=== PATIENT | male | born 2000 | race Caucasian/White ===

== ENCOUNTER 2024-02-01 04:29 | Emergency (ER) | payer OTHER, SELFPAY ==
--- NOTE | ~2024-02-01 | CT_ITS ---
EXAMINATION: CT abdomen pelvis w con INDICATION: Right lower quadrant pain TECHNIQUE: Computed tomographic images of the abdomen and pelvis were obtained after the administrati on of 100 cc of Omnipaque 350 intravenous contrast. The dose-length product (DLP) was 432.93 mGy-cm. Automated exposure control and iterative reconstruction technique were employed. COMPARISON: None available FINDINGS: The lung bases are clear. The heart size is normal. The liver, spleen, pancreas, gallbladde r, and adrenal glands are normal. The kidneys are unremarkable. No pathologically enlarged abdominal or pelvic lymph nodes are identified. No free intraperitoneal gas or evidence of bowel obstruction. T he appendix is normal. There is mild lumbar spondylosis at L5-S1. IMPRESSION: 1. No CT correlate for the patient's symptoms. Reviewed, dictated and finalized at location A.
[2024-02-01 04:32] VITALS: BP 140/80; PULSE 69; RESP 20; TEMP 36.8; O2SAT 99
[2024-02-01 04:53] VITALS: BP 134/74; PULSE 75; RESP 12; O2SAT 100
--- NOTE | 2024-02-01 04:54 | ED.ABDPAIN ---
HPI - Abdominal Pain General Chief Complaint: Abdominal Pain Stated Complaint: abd pain Time Seen by Provider: 02/01/24 04:36 History of Present Illness HPI narrative: Patient is a 23-year-old male who presents to the emergency department this morning complaining of abdominal pain. Patient states pain started around 1:00 a.m. and initially started in the periumbilical region but has now moved to his right lower. Patient admits that the pain does wrap around to his right flank region. He denies any urinary symptoms including dysuria or hematuria. Patient also denies any history of kidney stones and denies any previous abdominal surgeries. Patient admits that he has been having diarrhea for the past 2 days. He admits to feeling nauseous but denies any vomiting episodes. Denies any melena or hematochezia any fevers or chills. There are no other modifying, alleviating, or precipitating factors at this time. Related Data Allergies Allergy/AdvReac Type Severity Reaction Status Date / Time cefdinir Allergy Unknown hives Verified 05/15/16 13:34 Review of Systems Review of Systems: All systems are reviewed and are negative unless stated otherwise in the HPI. [facility] Family History Family History Mother Hypertension Comments Denies any significant medical or surgical history, denies any alcohol abuse or illicit drug use Exam Narrative: General: Alert, awake, afebrile, in no acute distress. HEENT: PERRL, no rhinorrhea, no post nasal drip, oropharynx clear. Neck: Trachea midline, no JVD, no lymphadenopathy. Cardiovascular: Regular rate and rhythm, no murmurs, rubs or gallops, no peripheral edema. Respiratory: Clear to auscultation bilaterally, no tachypnea, no wheezing, no rhonchi, no rubs, no respiratory distress. Abdomen: Soft, nonlocalized tenderness to palpation over the lower quadrants, nondistended, no rebound, no guarding, no peritoneal signs. Musculoskeletal: No joint swelling or deformity, normal muscle tone. Skin: No rashes or petechia, no signs of infection. Psychiatric: Alert and oriented, normal behavior and judgment for situation. Neurological: Alert and oriented to person, place, and time. Follows all commands. No focal deficits, speech is clear and fluent. Course Vital Signs Vital signs: Vital Signs Temperature 98.2 F 02/01/24 04:32 Pulse Rate 69 02/01/24 04:32 Respiratory Rate 20 02/01/24 04:32 Blood Pressure 140/80 02/01/24 04:32 Pulse Oximetry 99 02/01/24 04:32 Oxygen Delivery Room Air 02/01/24 04:32 Temperature 98.2 F 02/01/24 04:32 Pulse Rate 75 02/01/24 04:53 Respiratory Rate 12 02/01/24 04:53 Blood Pressure 134/74 02/01/24 04:53 Pulse Oximetry 100 02/01/24 04:53 Oxygen Delivery Room Air 02/01/24 04:32 MDM - Abdominal Pain MDM Narrative Medical decision making narrative: The patient was evaluated by myself in the emergency department. History is obtained from patient who is an independent historian and physical exam was performed. External medical records were reviewed at this time. IV was established and pertinent tests were ordered. Patient was administered 2 mg of IV morphine and 4 mg of IV Zofran. Laboratory results obtained revealing a leukocytosis of 19, otherwise unremarkable. Imaging studies obtained included CT abdomen and pelvis with IV contrast which was independently interpreted by me revealing no acute process, which is pending final radiology interpretation. Differential diagnosis considerations include kidney stones, pancreatitis, appendicitis, cholecystitis and diverticulitis. Comorbidities impacting this visit include none. I have evaluated and discussed social determinants of health with the patient that could potentially impact subsequent diagnosis and treatment plans. On repeat assessment of the patient, reevaluation revealed that the patient is doing well and
[2024-02-01 05:01] LABS: Basophils Absolute Auto 0.1 K/mm3 (0.0-0.1); Basophils Percent Auto 0.4 % (0.2-1.2); Eosinophils Absolute Auto 0.1 K/mm3 (0-0.3); Eosinophils Percent Auto 0.6 % (0-4.4); Hematocrit 49.5 % (42.0-52.0); Immature Granulocyte Absolute 0.08 K/mm3 (0.00-0.031); Immature Granulocyte Percent A 0.4 % (0-0.5); Lymphocytes Absolute Auto 1.89 K/mm3 (0.9-3.2); Lymphocytes Percent Auto 9.8 % (18.3-44.2); Mean Corpuscular HGB Conc 34.3 g/dl (32-36); Mean Corpuscular Volume 90.2 fl (80-100); Mean Platelet Volume 11.7 fl (7.4-10.4); Monocytes Absolute Auto 1.4 K/mm3 (0.1-0.6); Monocytes Percent Auto 7.1 % (2.6-8.5); Neutrophils Absolute Auto 15.7 K/mm3 (1.3-6.7); Neutrophils Percent Auto 81.7 % (45.5-73.1); Platelet Count Result 218 k/mm3 (150-375); Red Blood Count 5.49 M/mm3 (4.6-6.20); Red Cell Distribution Width 12.3 % (11.5-14.5); White Blood Count 19.2 K/mm3 (4.5-10.0)
[2024-02-01 05:03] LABS: Appearance Urine Clear (Clear); Bilirubin Urine Negative (Negative); Blood Urine Negative (Negative); Color Urine Yellow (Yellow); Glucose Urine UA Negative (Negative); Ketones Urine Trace mg/dL (Negative); Leukocyte Esterase Ur Negative LEU/UL (Negative); Nitrate Urine Negative (Negative); Protein Urine Negative (Negative); Urobilinogen Urine 0.2 mg/dL (<2.0); pH Urine 5.5 (5.0-9.0)
[2024-02-01 05:13] LABS: Alanine Aminotransferase 32 U/L (6-50); Albumin Level 4.8 g/dL (3.5-5.1); Alkaline Phosphatase 65 U/L (38-126); Anion Gap 7 mmol/L (4-12); Aspartate Amino Transferase 29 U/L (17-59); Blood Urea Nitrogen 24 mg/dL (9-20); Carbon Dioxide 30 mmol/L (22-30); Chloride 102 mmol/L (98-107); Estimated CRCL calculation 129 ml/min; Estimated Glomerular Filt Rate > 60; Glucose 103 mg/dL (65-110); Potassium 4.1 mmol/L (3.4-5.0); Sodium 139 mmol/L (137-145)
[2024-02-01] MEDS: ONDANSETRON INJ 4 MG/2 ML VIAL IV PUSH ×2 (05:24→05:34)
[2024-02-01] MEDS: MORPHINE SULFATE (*CRX) 2 MG/ML INJ IV PUSH (05:24)
[2024-02-01 05:49] LABS: Specific Grav Ur 1.031 (1.001-1.035)
[2024-02-01 05:50] LABS: Add Urine Microscopic? NO
[2024-02-01 05:52] LABS: Lipase 70 U/L (23-300)
[2024-02-01] MEDS: SODIUM CHLORIDE 0.9% IV 1,000 ML 999 ML IV CONT (06:13)
[2024-02-01 07:38] VITALS: BP 127/73; PULSE 74; RESP 15; TEMP 36.8; O2SAT 99
== END 2024-02-01 07:40 | disposition home or self-care (01) ==
PROVIDERS: Emergency Provider Emergency Medicine; PCP Family Medicine
DX: R10.31 Right lower quadrant pain (principal); D72.829 Elevated white blood cell count, unspecified
CPT/HCPCS: 36415; 74177; 80053; 81003; 82248; 83690; 85025; 96361; 96374; 96375; 99284; J2270; J2405; J7030; Q9967

== ENCOUNTER 2025-04-29 15:54 | Emergency (ER) | payer OTHER, SELFPAY ==
[2025-04-29 16:05] VITALS: BP 141/79; PULSE 75; RESP 20; TEMP 36.9; O2SAT 99
--- NOTE | 2025-04-29 16:36 | ED_ITS ---
HPI - General Adult General Chief complaint: Upper Respiratory Infection Stated complaint: Sinus Source: patient Mode of arrival: ambulatory Limitations: no limitations History of Present Illness HPI narrative: patient is a 24-year-old male presenting complaint of sinus congestion. Additional symptoms reported include rhinorrhea, sore throat, postnasal drip, watery eyes. Symptoms began 3 days ago. Reports sore throat has improved since onset. Denies any known exposure to COVID, flu, strep, pneumonia. Treatment initiated prior to arrival include DayQuil, NyQuil. No additional complaints. Related Data Home Medications ?Medication ?Instructions ?Recorded ?Confirmed ?Last Taken ?Type pantoprazole 40 mg tablet,delayed 40 mg PO QAM PRN 05/21/24 05/21/24 Unknown History release Allergies Allergy/AdvReac Type Severity Reaction Status Date / Time cefdinir Allergy Unknown hives Verified 04/29/25 16:10 Review of Systems Review of Systems: CONSTITUTIONAL: Denies body aches, fever, chills, or sweats. EYES: reports watery eyes Denies visual changes, redness, or discharge. ENT: reports rhinorrhea, congestion, sore throat, postnasal drip,denies otalgia. CARDIOVASCULAR: Denies chest pain, palpitations, or edema. RESPIRATORY: Denies cough or dyspnea. GASTROINTESTINAL: Denies abdominal pain, nausea, vomiting, or diarrhea. GENITOURINARY: Denies dysuria or hematuria. SKIN: Denies rash, itching, or wounds. MUSCULOSKELETAL: Denies back pain, joint pain, or myalgia. NEUROLOGIC: Denies headache, numbness, tingling, or weakness. PSYCH: Denies depression or anxiety. All systems reviewed & are unremarkable except as noted in HPI and below PMFSH Past Medical History Medical History Coarctation of aorta (~2008) Gastritis Hypertension Family History Family History Mother Hypertension Grandparent Hypertension Diabetes mellitus Social History Social History Smoking status: Never smoker Tobacco type: e-cigarettes/vaping Alcohol intake: current Substance use type: marijuana Do You Feel Safe in your Home?: Yes Lack of Transportation: No Lack of Food: Never True Current Housing: I Have Housing Concerned About Future Housing: No Difficulty Paying Gas/Electric Bills: No Difficulty Paying for Meds: No Currently Unemployed: No Education: Bachelor's Degree Difficulty w/ Childcare or Family Care: No Exam Narrative: GENERAL: Well-appearing, well-nourished, and in no acute distress. HEAD: Normocephalic, atraumatic. EYES: EOMI. No redness or drainage. Conjunctivae normal. ENT: Mucous membranes pink and moist. Nares clear. scant amount of clear rhinorrhea. TMs normal bilaterally. mild erythema noted to posterior pharynx. Tonsils are 2+ bilaterally without exudate.Uvula midline. NECK: Normal AROM. Supple. No lymphadenopathy. CHEST: No respiratory distress. Clear to auscultation. HEART: Regular rate and rhythm. No murmur appreciated. Normal peripheral pulses. ABDOMEN: Soft, nontender, nondistended, normal active bowel sounds. MUSCULOSKELETAL: No bony tenderness. EXTREMITIES: Normal range of motion. No edema. SKIN: Warm, dry, no rash. Capillary refill normal. Normal skin turgor. NEURO: No focal deficits. Alert and oriented x3. Gait steady. PSYCH: Normal affect. No signs of depression or anxiety. Course Course Emergency Course: Please be advised this is a medical document. It is intended for [id number] communication. It is written in medical language and may contain unfamiliar abbreviations or verbiage. Medical documents are intended to carry relevant information, facts as evident, and the clinical opinion of the practitioner at the time of the encounter. This dictation may have been done utilizing a voice recognition system. Attempts have been made to correct errors. However, there may be uncorrected grammatical, spelling, and recognition errors present. Level of Care: Express Care Visit Vital Signs Vital signs: Vital Signs Temperature 98.5 F 04/29/25 16:05 Pulse Rate 75 04/29/25 16:05 Respiratory Rate 04/29/25 16:05 Blood Pressure 141/79 H 04/29/25 16:05 Pulse Oximetry 99 04/29/25 16:05 Oxygen Delivery Room Air 04/29/25 16:05 Temperature 98.5 F 04/29/25 16:05 Pulse Rate 75 04/29/25 16:05 Respiratory Rate 20 04/29/25 16:05 Blood Pressure 141/79 H 04/29/25 16:05 Pulse Oximetry 99 04/29/25 16:05 Oxygen Delivery Room Air 04/29/25 16:05 Medical Decision Making Vital Signs Vital Signs: Vital Signs Temperature 98.5 F 04/29/25 16:05 Pulse Rate 75 04/29/25 16:05 Respiratory Rate 20 04/29/25 16:05 Blood Pressure 141/79 H 04/29/25 16:05 Pulse Oximetry 99 04/29/25 16:05 Oxygen Delivery Room Air 04/29/25 16:05 Temperature 98.5 F 04/29/25 16:05 Pulse Rate 75 04/29/25 16:05 Respiratory Rate 20 04/29/25 16:05 Blood Pressure 141/79 H 04/29/25 16:05 Pulse Oximetry 99 04/29/25 16:05 Oxygen Delivery Room Air 04/29/25 16:05 Lab Data Labs: Lab Results 04/29/25 Range/Units 16:25 POC Influenza A Ag Pending POC Influenza B Ag Pending POC SARS CoV-2 Ag Negative (Negative) POC Grp A Strep Screen Pending Discharge Plan Discharge Clinical Impression: Elevated blood pressure reading in office without diagnosis of hypertension Upper respiratory infection Qualifiers: URI type: acute nasopharyngitis (common cold) Qualified Code(s): J00 - Acute nasopharyngitis [common cold] Patient Disposition: Home Condition: Stable Instructions: Antibiotic Form Additional Instructions: Go straight to ER should your symptoms become worse or should any new symptoms develop Patient Language: Dominican Prescriptions: New prednisone 20 mg tablet 60 mg PO DAILY Qty: 15 0RF No Action pantoprazole 40 mg tablet,delayed release (DR/EC) 40 mg PO QAM PRN Follow-up/Referrals: Hollie Elliott, [employer] [facility] [employer] [Primary Care Provider] - Time of Disposition: 16:37
[2025-04-29 16:44] LABS: EDCOVIDSCREEN Negative (Negative); EDINFLUASCREEN Negative (Negative); EDINFLUBSCREEN Negative (Negative); EDSTREPNEGPOS1 Negative (Negative)
== END 2025-04-29 16:53 | disposition home or self-care (01) ==
PROVIDERS: Emergency Provider Registered Nurse; PCP Clinical Nurse Specialist
DX: J00 Acute nasopharyngitis [common cold] (principal); R03.0 Elevated blood-pressure reading, without diagnosis of hypertension; I10 Essential (primary) hypertension; Z20.822 Contact with and (suspected) exposure to COVID-19
CPT/HCPCS: 87081; 87426; 87804; 87880; 99213; G0463